=== PATIENT | male | born 1965 | race Caucasian/White ===

== ENCOUNTER 2022-01-14 13:04 | Emergency (ER) | payer OTHER, MEDICARE ==
[2022-01-14 13:35] VITALS: TEMP 98.3; BMI 23.1
[2022-01-14] MEDS ORDERED: BEBTELOVIMAB (EUA) 175 MG/2 ML VIAL IVPUSH ONE (14:29)
[2022-01-14 15:35] VITALS: BP 146/63; PULSE 74
== END 2022-01-14 16:13 | disposition home or self-care (01) ==
LOC: JER 13:04 → JCOVINFU 13:04
PROC: 3E033GC Introduction of Other Therapeutic Substance into Peripheral Vein, Percutaneous Approach (ICD-10-PCS; principal; 2022-01-14)
DX: U07.1 COVID-19 (principal)
CPT/HCPCS: 99284-25; M0222; Q0222